=== PATIENT | male | born 1965 | race African-American/Black ===

== ENCOUNTER 2020-03-10 04:02 | Emergency (ER) | payer MEDICAID ==
[~2020-03-10] VITALS: Ht 180.3 cm; Wt 130.0 kg
--- NOTE | 2020-03-10 06:40 | PHYS DOC ---
Past Medical History Past Medical History: Asthma, Diabetes-Type II Past Surgical History: Other Additional Past Surgical Histo: ABDOMINAL REPAIR FOR SHOOTING. Smoking Status: Current Every Day Smoker Alcohol Use: Occasionally General Adult EDM: Chief Complaint: FOOT INJURY PAIN HPI: HPI: Patient is a 55 year old male who presented to ER by EMS for evaluation of bilateral feet pain and fingers pain for the last 12 hours due to being outside in the cold. Patient is homeless. He denied any injury. He complains of pain at the tip of his fingers, pain in the bottom of his feet. Patient denies any fever, no numbness or weakness. Patient has history of asthma , diabetic and hypertension. Patient denies any chest pain or any trouble breathing. Review of Systems: Review of Systems: Constitutional: Denies fever or chills. [] Eyes: Denies change in visual acuity. [] HENT: Denies nasal congestion or sore throat. [] Respiratory: Denies cough or shortness of breath. [] Cardiovascular: Denies chest pain or edema. [] GI: Denies abdominal pain, nausea, vomiting, bloody stools or diarrhea. [] : Denies dysuria. [] Musculoskeletal: bilateral feet pain and fingers pain. Integument: Denies rash. [] Neurologic: Denies headache, focal weakness or sensory changes. [] Endocrine: Denies polyuria or polydipsia. [] Lymphatic: Denies swollen glands. [] Psychiatric: Denies depression or anxiety. [] Heart Score: Risk Factors: Risk Factors: DM, Current or recent (<one month) smoker, HTN, HLP, family history of CAD, obesity. Risk Scores: Score 0 - 3: 2.5% MACE over next 6 weeks - Discharge Home Score 4 - 6: 20.3% MACE over next 6 weeks - Admit for Clinical Observation Score 7 - 10: 72.7% MACE over next 6 weeks - Early Invasive Strategies Physical Exam: PE: Constitutional: Well developed, well nourished, no acute distress, non-toxic appearance. [] HENT: Normocephalic, atraumatic, bilateral external ears normal, oropharynx moist, no oral exudates, nose normal. [] Eyes: PERRLA, EOMI, conjunctiva normal, no discharge. [] Neck: Normal range of motion, no tenderness, supple, no stridor. [] Cardiovascular:Heart rate regular rhythm, no murmur [] Lungs & Thorax: Bilateral breath sounds clear to auscultation [] Abdomen: Bowel sounds normal, soft, no tenderness, no masses, no pulsatile masses. [] Skin: Warm, dry, no erythema, no rash. [] Back: No tenderness, no CVA tenderness. [] Extremities: bilateral hands, fingers are warm to touch, no injury, no swelling. Bilateral feet and toes are warm to touch, no evidence of injury, MILD EDEMATOUS OF TOES, NO OPEN WOUND. Neurologic: Alert and oriented X 3, normal motor function, normal sensory function, no focal deficits noted. [] Psychologic: Affect normal, judgement normal, mood normal. [] Current Patient Data: Vital Signs: Vital Signs Date Time Temp Pulse Resp B/P (MAP) Pulse Ox O2 Delivery O2 Flow Rate FiO2 03/10/20 05:06 98.1 72 16 154/90 (111) 98 Room Air 98.1 EKG: EKG: [] Radiology/Procedures: Radiology/Procedures: [][facility] [address] [place] [address] IMAGING REPORT Signed PATIENT: MICHAEL BERGER ACCOUNT: [id number] : 1965 LOCATION: ER AGE: 55 SEX: M EXAM STATUS: REG ER ORD. PHYSICIAN: JUAN CARLOS GARCIA DO REASON: bilateral feet pain after walking outside PROCEDURE: FOOT BILAT 3V Bilateral foot x-rays 3 views each HISTORY: Bilateral foot pain after walking outside. FINDINGS: Shortening of the left fourth metatarsal likely due to a old injury during development in childhood. There is bilateral foot soft tissue edema and swelling. Spurs of the plantar calcaneus bilaterally likely indicative of chronic planter fasciitis. No fracture. No dislocation. 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 Bone spur dorsally from the left anterior talus. IMPRESSION: No acute osseous injury. Bilateral foot soft tissue edema and swelling. See above. Electronically signed by: John Vasquez MD (03/10/2020 7:15 AM) [id number] DICTATED and SIGNED BY: JOHN VASQUEZ MD DATE: 03/10/20 0715 Course & Med Decision Making: Course & Med Decision Making Pertinent Labs and Imaging studies reviewed. (See chart for details) Patient is a 55-year-old male who is homeless, presented to ER for evaluation cold symptom, numbness and pain when the tip of his fingers and hit feet. There is no evidence of frostbite. He may have suffered frostnip. Patient was given education about frostbite and frostnip preventation. Dragon Disclaimer: Dragon Disclaimer: This electronic medical record was generated, in whole or in part, using a voice recognition dictation system. Departure Departure Impression: Primary Impression: Frostnip Disposition: 01 DC HOME SELF CARE/HOMELESS Condition: STABLE Referrals: NO PCP (PCP) Patient Instructions: Frostbite, [id number] Additional Instructions: Frostnip is a mild cold weather-related injury that typically affects the face, cheeks, lips, ears, toes, and fingers. Symptoms of frostnip usually occur after exposure to cold weather. The area(s) may appear pale, be accompanied by burning, itching or pain, tingle, and feels numb. Simple rewarming restores normal color and sensation, and there is no subsequent permanent tissue damage. Frostnip treatment Frostnip will generally improve with conservative rewarming measures at home. Frostnip to the hands, for example, can be treated by breathing into cupped hands or placing the hands in the armpit area. Alternatively, the affected area can be submerged in warm water until normal sensation is restored. The initial treatment for any cold weather-related injury involves removing yourself or others from the precipitating cold environment, if possible, to prevent further heat loss. Move indoors, and remove all wet clothing and constricting clothing (such as socks, boots, and gloves), and replace with dry clothing. Avoid massaging or rubbing the affected area, as this will only aggravate the injury. It is important to note that some of these individuals may also be suffering from hypothermia, a potentially life-threatening condition. JUAN CARLOS GARCIA DO Mar 10, 2020 06:40
--- NOTE | 2020-03-10 07:18 | RAD ---
Bilateral foot x-rays 3 views each HISTORY: Bilateral foot pain after walking outside. FINDINGS: Shortening of the left fourth metatarsal likely due to a old injury during development in childhood. There is bilateral foot soft tissue edema and swelling. Spurs of the plantar calcaneus bilaterally likely indicative of chronic planter fasciitis. No fracture. No dislocation. 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 Bone spur dorsally from the left anterior talus. IMPRESSION: No acute osseous injury. Bilateral foot soft tissue edema and swelling. See above. Electronically signed by: John Vasquez MD (03/10/2020 7:15 AM) [id number]
[2020-03-10 07:44] VITALS: BP 154/96
== END 2020-03-10 09:00 | disposition home or self-care (01) ==
LOC: ER 04:02
DX: T33.822A Superficial frostbite of left foot, initial encounter (principal); T33.821A Superficial frostbite of right foot, initial encounter; T33.532A Superficial frostbite of left finger(s), initial encounter; T33.531A Superficial frostbite of right finger(s), initial encounter; Z59.0 Homelessness; E11.9 Type 2 diabetes mellitus without complications; J45.909 Unspecified asthma, uncomplicated; F17.200 Nicotine dependence, unspecified, uncomplicated; M20.12 Hallux valgus (acquired), left foot; M20.11 Hallux valgus (acquired), right foot; X31.XXXA Exposure to excessive natural cold, initial encounter; Y93.89 Activity, other specified; Y92.89 Other specified places as the place of occurrence of the external cause; Y99.8 Other external cause status
CPT/HCPCS: 73630; 82962; 99283; 99284

== ENCOUNTER 2020-03-19 04:22 | Emergency (ER) | payer MEDICAID ==
[~2020-03-19] VITALS: Ht 180.3 cm; Wt 140.0 kg
[2020-03-19] MEDS ORDERED: METF10007 PO (04:47)
--- NOTE | 2020-03-19 05:09 | PHYS DOC ---
Past Medical History Past Medical History: Asthma, Diabetes-Type II, Hypertension Past Surgical History: Other Additional Past Surgical Histo: ABDOMINAL REPAIR FOR SHOOTING. Smoking Status: Current Every Day Smoker Alcohol Use: Occasionally General Adult EDM: Chief Complaint: GENERALIZED BODY ACHES HPI: HPI: Patient is a 55 year old homeless male presents via ems with the chief complaint of bilateral feet pain. Patient states it is cold outside and he needs a place to warm up. Patient also states he needs a refill of a blood pressure medication but he is unsure of the name. No other complaints. Review of Systems: Review of Systems: Constitutional: Denies fever or chills. [] Eyes: Denies change in visual acuity. [] HENT: Denies nasal congestion or sore throat. [] Respiratory: Denies cough or shortness of breath. [] Cardiovascular: Denies chest pain or edema. [] GI: Denies abdominal pain, nausea, vomiting, bloody stools or diarrhea. [] : Denies dysuria. [] Musculoskeletal: Denies back pain or joint pain. [] Integument: Denies rash. [] Neurologic: Denies headache, focal weakness or sensory changes. [] Endocrine: Denies polyuria or polydipsia. [] Lymphatic: Denies swollen glands. [] Psychiatric: Denies depression or anxiety. [] Heart Score: Risk Factors: Risk Factors: DM, Current or recent (<one month) smoker, HTN, HLP, family histo ry of CAD, obesity. Risk Scores: Score 0 - 3: 2.5% MACE over next 6 weeks - Discharge Home Score 4 - 6: 20.3% MACE over next 6 weeks - Admit for Clinical Observation Score 7 - 10: 72.7% MACE over next 6 weeks - Early Invasive Strategies Allergies: Allergies: Allergies Coded Allergies Type Severity Reaction Last Updated Verified chlorpromazine Allergy Severe 03/19/20 Yes Physical Exam: PE: Constitutional: Well developed, well nourished, no acute distress, non-toxic appearance. [] HENT: Normocephalic, atraumatic, bilateral external ears normal, oropharynx moist, no oral exudates, nose normal. [] Eyes: PERRLA, EOMI, conjunctiva normal, no discharge. [] Neck: Normal range of motion, no tenderness, supple, no stridor. [] Cardiovascular:Heart rate regular rhythm, no murmur [] Lungs & Thorax: Bilateral breath sounds clear to auscultation [] Abdomen: Bowel sounds normal, soft, no tenderness, no masses, no pulsatile masses. [] Skin: Warm, dry, no erythema, no rash. [] Back: No tenderness, no CVA tenderness. [] Extremities: No tenderness, no cyanosis, no clubbing, ROM intact, no edema. [] Neurologic: Alert and oriented X 3, normal motor function, normal sensory fu nction, no focal deficits noted. [] Psychologic: Affect normal, judgement normal, mood normal. [] Current Patient Data: Labs: Laboratory Tests Test 03/19/20 04:40 Glucose (Fingerstick) 109 mg/dL (70-99) H Vital Signs: Vital Signs Date Time Temp Pulse Resp B/P (MAP) Pulse Ox O2 Delivery O2 Flow Rate FiO2 03/19/20 04:22 97.8 90 20 158/83 (108) 100 Room Air 97.8 EKG: EKG: [] Radiology/Procedures: Radiology/Procedures: [] Course & Med Decision Making: Course & Med Decision Making Pertinent Labs and Imaging studies reviewed. (See chart for details) [] Dragon Disclaimer: Dragon Disclaimer: This electronic medical record was generated, in whole or in part, using a voice recognition dictation system. Departure Departure Impression: Primary Impression: Homeless Disposition: 01 DC HOME SELF CARE/HOMELESS Condition: STABLE Referrals: NO PCP (PCP) Patient Instructions: Exam, Normal, Adult ULISES COLMENARES DO Mar 19, 2020 05:09
[2020-03-19 05:30] VITALS: BP 158/83
== END 2020-03-19 05:40 | disposition home or self-care (01) ==
LOC: ER 04:22
DX: M79.671 Pain in right foot (principal); M79.672 Pain in left foot; J45.909 Unspecified asthma, uncomplicated; E11.9 Type 2 diabetes mellitus without complications; I10 Essential (primary) hypertension; F17.200 Nicotine dependence, unspecified, uncomplicated; Z98.890 Other specified postprocedural states; Z59.0 Homelessness; Z88.8 Allergy status to other drugs, medicaments and biological substances
CPT/HCPCS: 82962; 99283